=== PATIENT | male | born 1965 | race Caucasian/White ===

== ENCOUNTER 2016-07-15 05:40 | Inpatient (IN) | payer OTHER ==
[~2016-07-15] VITALS: Ht 177.8 cm; Wt 89.1 kg
[~2016-07-15 05:40] MED LIST: CELE200C PO; HYDR-882 PO; HYDR25TA11 PO; LISI-170 PO; MIRT15TA6 PO; PREG150C PO; ROPI0.5T2 PO
[2016-07-15] MEDS ORDERED: LACTATED RINGERS 1,000 ML IV SCH (06:12)
[2016-07-15 06:21] VITALS: BP 116/67
[2016-07-15] MEDS ORDERED: LIDOCAINE 1%, 2ML SQ PRN (06:30)
[2016-07-15] MEDS ORDERED: SPIR25TA3 PO (06:38)
[2016-07-15] MEDS ORDERED: OXYC-223 PO (06:38)
[2016-07-15] MEDS ORDERED: MIRT15TA PO (06:38)
[2016-07-15] MEDS ORDERED: LIDOCAINE 0.5%-EPI 1:200K, 50ML ONE (06:42)
[2016-07-15] MEDS ORDERED: VANCOMYCIN 1,000 MG ONE (06:42)
[2016-07-15] MEDS ORDERED: BUPIVACAINE/PF-EPI 0.25% 1:200K ONE (06:43)
[2016-07-15] MEDS ORDERED: THROMBIN 5,000 UNIT VIAL TP ONE (06:43)
[2016-07-15] MEDS ORDERED: FENTANYL PF 250 MCG/5ML ONE (07:02)
[2016-07-15] MEDS ORDERED: MIDAZOLAM 1 MG/ML, 2ML ONE (07:03)
[2016-07-15] MEDS ORDERED: CEFAZOLIN 1,000 MG ONE (07:42)
[2016-07-15] MEDS ORDERED: SUCCINYLCHOLINE 20 MG/ML, 10ML ONE (07:42)
[2016-07-15] MEDS ORDERED: NEOSTIGMINE 1 MG/ML, 10ML ONE (07:42)
[2016-07-15] MEDS ORDERED: PROPOFOL 10 MG/ML, 20ML ONE (07:42)
[2016-07-15] MEDS ORDERED: ONDANSETRON 2MG/ML, 2ML ONE (07:42)
[2016-07-15] MEDS ORDERED: GLYCOPYRROLATE 0.2MG/1ML ONE (07:42)
[2016-07-15] MEDS ORDERED: DEXAMETHASONE 4 MG/ML, 5ML ONE (07:42)
[2016-07-15] MEDS ORDERED: ROCURONIUM 10 MG/ML ONE (07:42)
[2016-07-15] MEDS ORDERED: MIDAZOLAM 1 MG/ML, 2ML IV PRN (08:30)
[2016-07-15] MEDS ORDERED: METOPROLOL 1 MG/ML, 5ML IV PRN (08:30)
[2016-07-15] MEDS ORDERED: ONDANSETRON 2MG/ML, 2ML IVPush PRN (08:30)
[2016-07-15] MEDS ORDERED: PROMETHAZINE 25 MG/ML, 1ML IV PRN (08:30)
[2016-07-15] MEDS ORDERED: EPHEDRINE 50 MG/ML, 1ML IVPush PRN (08:30)
[2016-07-15] MEDS ORDERED: hydrALAzine 20 MG/ML, 1ML IV PRN (08:30)
[2016-07-15] MEDS ORDERED: OXYcodone 5 MG/5 ML ORAL.SOL UDC PO PRN (08:30)
[2016-07-15] MEDS ORDERED: MEPERIDINE/PF 25MG/0.5ML IVPush PRN (08:30)
[2016-07-15] MEDS ORDERED: ACETAMINOPHEN 325 MG TABLET PO PRN (08:30)
[2016-07-15] MEDS ORDERED: ALBUTEROL SULFATE 2.5 MG/3 ML NPPB PRN (08:30)
[2016-07-15] MEDS ORDERED: LABETALOL 5MG/ML, 20ML IV PRN (08:30)
[2016-07-15] MEDS ORDERED: OXYcodone 5 MG/5 ML ORAL.SOL UDC ONE (11:06)
[2016-07-15] MEDS ORDERED: FENTANYL PF 100 MCG/2ML ONE (11:06)
[2016-07-15] MEDS: FENTANYL PF 100 MCG/2ML IV PRN ×2 (11:07→11:13)
[2016-07-15] MEDS ORDERED: HYDROmorphone 2 MG/ML, 1ML ONE (11:19)
[2016-07-15] MEDS: HYDROmorphone 1 MG/ML, 1ML IV PRN ×2 (11:21→11:29)
[2016-07-15] MEDS ORDERED: MEPERIDINE/PF 25MG/0.5ML ONE (11:37)
[2016-07-15] MEDS ORDERED: DIAZEPAM 5 MG/ML, 2ML ONE (11:45)
[2016-07-15] MEDS ORDERED: DIAZEPAM 5 MG/ML, 2ML IVPush PRN (12:00)
[2016-07-15] MEDS ORDERED: ACETAMINOPHEN 325 MG TABLET ONE (12:17)
[2016-07-15 12:55] VITALS: BP 105/55
[2016-07-15] MEDS ORDERED: MAGNESIUM HYDROXIDE 8%, 30ML UDC PO PRN (14:00)
[2016-07-15] MEDS ORDERED: DIAZEPAM 5 MG/ML, 2ML IV PRN (14:00)
[2016-07-15] MEDS ORDERED: ONDANSETRON 2MG/ML, 2ML IV PRN (14:00)
[2016-07-15] MEDS ORDERED: MIRTAZAPINE MC SCH (14:00)
[2016-07-15] MEDS ORDERED: DIAZEPAM 5 MG TABLET PO PRN (14:00)
[2016-07-15] MEDS ORDERED: PROMETHAZINE 25 MG/ML, 1ML IM PRN (14:00)
[2016-07-15] MEDS ORDERED: DIPHENHYDRAMINE 50 MG/ML, 1ML IVPush PRN (14:00)
[2016-07-15] MEDS ORDERED: HYDROcodone/APAP 5/325 TABLET PO PRN (14:00)
[2016-07-15] MEDS: morphine SULFATE 10 MG/ML, 1ML IV PRN (14:05)
[2016-07-15] MEDS: HYDROcodone/APAP 10/325 MG TABLET PO PRN ×3 (15:06→23:04)
[2016-07-15] MEDS: MIRTAZAPINE MC SCH ×2 (15:53→23:53)
[2016-07-15] MEDS ORDERED: METHOCARBAMOL 1,000 MG in DEXTROSE 5% 100 ML IV SCH (16:00)
[2016-07-15] MEDS: D5%-0.9% NACL+KCL 20MEQ 1,000 ML IV SCH (16:04)
[2016-07-15] MEDS: CEFAZOLIN PMX 1GM/50ML 50 ML IVPB SCH (16:04)
[2016-07-15] MEDS: METHOCARBAMOL 1,000 MG in DEXTROSE 5% 100 ML IV SCH ×2 (17:54→18:32)
[2016-07-15 20:13] VITALS: BP 101/49
[2016-07-15] MEDS: PREGABALIN 150 MG CAPSULE PO SCH (21:01)
[2016-07-16 00:09] VITALS: BP 96/48
[2016-07-16] MEDS: CEFAZOLIN PMX 1GM/50ML 50 ML IVPB SCH ×2 (00:21→08:21)
[2016-07-16] MEDS: morphine SULFATE 10 MG/ML, 1ML IV PRN ×3 (00:22→08:18)
[2016-07-16] MEDS: D5%-0.9% NACL+KCL 20MEQ 1,000 ML IV SCH ×2 (00:28→10:00)
[2016-07-16] MEDS: METHOCARBAMOL 1,000 MG in DEXTROSE 5% 100 ML IV SCH ×2 (01:12→10:16)
[2016-07-16] MEDS ORDERED: DEXAMETHASONE 4 MG TABLET PO ONE (04:00)
[2016-07-16 04:33] VITALS: BP 108/69
[2016-07-16] MEDS: HYDROcodone/APAP 10/325 MG TABLET PO PRN (04:39)
[2016-07-16 07:35] VITALS: BP 108/66
[2016-07-16] MEDS: MIRTAZAPINE MC SCH (07:53)
[2016-07-16] MEDS: PREGABALIN 150 MG CAPSULE PO SCH (08:24)
[2016-07-16] MEDS ORDERED: SENNA/DOCUSATE TABLET PO SCH (09:00)
[2016-07-16] MEDS ORDERED: SPIRONOLACTONE 25 MG TABLET PO SCH (09:00)
[2016-07-16] MEDS ORDERED: LISINOPRIL 20 MG TABLET PO SCH (09:00)
[2016-07-16] MEDS ORDERED: ROPINIROLE 0.5MG TABLET PO SCH (09:00)
[2016-07-16] MEDS ORDERED: MAGNESIUM HYDROXIDE 8%, 30ML UDC PO PRN (10:00)
[2016-07-16] MEDS: OXYcodone/APAP 10/325MG TABLET PO PRN ×3 (10:14→14:47)
[2016-07-16 13:42] VITALS: BP 121/56
[2016-07-16] MEDS ORDERED: CEPH-368 PO (15:56)
[2016-07-16] MEDS ORDERED: METH750T87 PO (15:57)
[2016-07-16] MEDS ORDERED: OXYC-229 PO (15:57)
== END 2016-07-16 16:17 | disposition home or self-care (01) | DRG 473 ==
LOC: ORIP 05:40 → 4NOR 13:19 → DCLOUNGE 07-16 15:53
PROVIDERS: ADMIT Orthopaedic Surgery Orthopaedic Surgery of the Spine; ATTEND Orthopaedic Surgery Orthopaedic Surgery of the Spine
PROC: 0RT30ZZ Resection of Cervical Vertebral Disc, Open Approach (ICD-10-PCS; 2016-07-15)
PROC: 0RP104Z Removal of Internal Fixation Device from Cervical Vertebral Joint, Open Approach (ICD-10-PCS; 2016-07-15)
PROC: 0RG40K0 Fusion of Cervicothoracic Vertebral Joint with Nonautologous Tissue Substitute, Anterior Approach, Anterior Column, Open Approach (ICD-10-PCS; principal; 2016-07-15 07:30)
DX: M50.13 Cervical disc disorder with radiculopathy, cervicothoracic region (principal); I10 Essential (primary) hypertension; G89.29 Other chronic pain; M48.04 Spinal stenosis, thoracic region; Z79.899 Other long term (current) drug therapy; Z98.1 Arthrodesis status; Z98.84 Bariatric surgery status; Z98.890 Other specified postprocedural states; Z88.8 Allergy status to other drugs, medicaments and biological substances
CPT/HCPCS: 36415; 72040; 86850; 86900; C1713; J0690; J1100; J1170; J2175; J2250; J2405; J2704; J2710; J3010; J3360; J3370; J3490; C1762; J0330; J2270; J2800; J3480; J7120